=== PATIENT | female | born 1975 | race Caucasian/White ===

== ENCOUNTER 2022-08-30 11:58 | Emergency (ER) | payer OTHER, SELFPAY ==
--- NOTE | ~2022-08-30 | XR_ITS ---
EXAMINATION: XR chest 2V DATE: 08/30/2022 12:29 INDICATION: Cough. Dyspnea. TECHNIQUE: Frontal and lateral views of the chest were obtained. COMPARISON: None. FINDINGS: There is no pneumonia, pleural effusion, or pneumothorax. The heart size is normal. Surgica l clips in the right upper quadrant are likely from cholecystectomy. IMPRESSION: 1. No acute cardiopulmonary disease. Reviewed, dictated and finalized at location A. ASSURANCE REPRESENTATIVE
[2022-08-30 12:12] VITALS: BP 116/73; PULSE 71; RESP 16; TEMP 36.6; O2SAT 100
[2022-08-30 13:07] LABS: Influenza A QL RT-PCR Negative (Negative); Influenza B QL RT-PCR Negative (Negative); SARS-CoV-2 RNA PCR Negative
[2022-08-30 14:42] VITALS: TEMP 36.9
[2022-08-30 14:47] LABS: Basophils Absolute Auto 0.1 K/mm3 (0.0-0.1); Basophils Percent Auto 0.7 % (0.2-1.2); Eosinophils Absolute Auto 0.1 K/mm3 (0-0.3); Eosinophils Percent Auto 1.7 % (0-4.4); Hematocrit 38.7 % (37.0-47.0); Hemoglobin 12.2 g/dL (12.0-15.0); Immature Granulocyte Absolute 0.03 K/mm3 (0.00-0.031); Immature Granulocyte Percent A 0.4 % (0-0.5); Lymphocytes Percent Auto 14.9 % (18.3-44.2); Mean Corpuscular HGB Conc 31.5 g/dl (32-36); Mean Corpuscular Hemoglobin 29.7 pg (26-34); Mean Corpuscular Volume 94.2 fl (80-100); Mean Platelet Volume 9.7 fl (7.4-10.4); Monocytes Absolute Auto 0.4 K/mm3 (0.1-0.6); Monocytes Percent Auto 4.6 % (2.6-8.5); Neutrophils Absolute Auto 6.3 K/mm3 (1.3-6.7); Neutrophils Percent Auto 77.7 % (45.5-73.1); Platelet Count Result 324 k/mm3 (150-375); Red Blood Count 4.11 M/mm3 (4.2-5.4); Red Cell Distribution Width 13.3 % (11.5-14.5); White Blood Count 8.1 K/mm3 (4.5-10.0)
[2022-08-30 14:57] LABS: Anion Gap 5 mmol/L (8-16); Blood Urea Nitrogen 10 mg/dL (7-17); Calcium 8.5 mg/dL (8.4-10.2); Carbon Dioxide 28 mmol/L (22-30); Chloride 105 mmol/L (98-107); Estimated CRCL calculation 70 ml/min; Estimated Glomerular Filt Rate > 60; Glucose 104 mg/dL (65-110); Potassium 4.3 mmol/L (3.4-5.0); Sodium 138 mmol/L (137-145)
--- NOTE | 2022-08-30 15:42 | ED.URI ---
HPI - URI/Sore Throat General Chief Complaint: Upper Respiratory Infection Stated Complaint: cold symptoms/diff breathing Time Seen by Provider: 08/30/22 14:21 Source: patient Mode of arrival: ambulatory Limitations: no limitations History of Present Illness HPI Narrative: This is a 47 year old female that presents to the ER for cold symptoms ongoing over the last couple of day. Reports cough, congestion, myalgias, fatigue, and feelings of shortness of breath. Denies fever, chest pain, or lower extremity edema. Related Data Allergies Allergy/AdvReac Type Severity Reaction Status Date / Time doxycycline Allergy Nausea and Verified 08/30/22 14:11 Vomiting tramadol Allergy Nausea and Verified 08/30/22 14:11 Vomiting Review of Systems Review of Systems: CONSTITUTIONAL: Denies fever EYES: Reports discharge. Denies redness ENT: Reports rhinorrhea, congestion. Denies sore throat CARDIOVASCULAR: Denies chest pain, or edema. RESPIRATORY: Reports cough and dyspnea. MUSCULOSKELETAL: Reports myalgia. NEUROLOGIC: Reports headache. Denies numbness, or weakness. All systems reviewed & are unremarkable except as noted in HPI and below PMFSH Past Medical History Medical History (Updated 08/30/22 @ 15:59 by Ella Webster PA-C) History of depression Social History Social History (Updated 08/30/22 @ 16:01 by Ella Webster PA-C) Substance use: never Exam Narrative: GENERAL: Well-appearing, well-nourished, and in no acute distress. HEAD: Normocephalic, atraumatic. EYES: EOMI. ENT: Nares clear, no rhinorrhea or epistaxis. Mucous membranes moist. Oropharynx without tonsillar hypertrophy exudate or other lesions. Bilateral TMs pearly agrawal non-bulging NECK: Supple. No adenopathy or masses. CHEST: Clear to auscultation. No respiratory distress. No wheezes rales or rhonchi HEART: Regular rate and rhythm. No murmur heard. Normal peripheral pulses. EXTREMITIES: Normal range of motion. No edema. SKIN: Warm, dry, no rash. NEURO: No focal deficits. Alert and oriented x3. PSYCH: Normal mood and affect Course Vital Signs Vital signs: Vital Signs Temperature 97.9 F 08/30/22 12:12 Pulse Rate 71 08/30/22 12:12 Respiratory Rate 16 08/30/22 12:12 Blood Pressure 116/73 08/30/22 12:12 Pulse Oximetry 100 08/30/22 12:12 Oxygen Delivery Room Air 08/30/22 12:12 Temperature 98.5 F 08/30/22 14:42 Pulse Rate 71 08/30/22 12:12 Respiratory Rate 16 08/30/22 12:12 Blood Pressure 116/73 08/30/22 12:12 Pulse Oximetry 100 08/30/22 12:12 Oxygen Delivery Room Air 08/30/22 12:20 MDM - URI/Sore Throat MDM Narrative Medical decision making narrative: Patient presents to the ER for cold symptoms ongoing over the last couple of days. She is afebrile and nontoxic-appearing. Oxygen saturations 100% on room air. Lungs are clear on exam. CBC metabolic panel without concerning findings. Influenza and COVID screens are negative. Chest x-ray without acute cardiopulmonary abnormality. Patient and family updated on work-up. Instructed on continued care of viral infection. She is to follow-up with primary care provider. She was given warnings to return to the ER Differential Diagnosis Differential diagnosis: Likely upper respiratory infection, viral infection, bronchitis, influenza and other (COVID, pneumonia) Lab Data Attestation: I reviewed the patient's lab results. 08/30/22 14:26 08/30/22 14:26 Labs: Lab Results 08/30/22 08/30/22 08/30/22 Range/Units 12:18 14:26 14:26 WBC 8.1 (4.5-10.0) K/mm3 RBC 4.11 L (4.2-5.4) M/mm3 Hgb 12.2 (12.0-15.0) g/dL Hct 38.7 (37.0-47.0) % MCV 94.2 (80-100) fl MCH 29.7 (26-34) pg MCHC 31.5 L (32-36) g/dl RDW 13.3 (11.5-14.5) % Plt Count 324 (150-375) k/mm3 MPV 9.7 (7.4-10.4) fl Immature Gran % (Auto) 0.4 (0-0.5) % Neut % (Auto) 77.7 H (45.5-73.1) % Lymph % (Auto)
== END 2022-08-30 16:11 | disposition home or self-care (01) ==
PROVIDERS: Emergency Medicine; Emergency Provider Physician Assistant
DX: J06.9 Acute upper respiratory infection, unspecified (principal); Z20.822 Contact with and (suspected) exposure to COVID-19
CPT/HCPCS: 36415; 71046; 80048; 85025; 87636; 99283